=== PATIENT | male | born 1955 | race American Indian/Alaskan Native ===

== ENCOUNTER 2017-01-25 12:30 | Emergency (ER) | payer OTHER ==
--- NOTE | 2017-01-25 12:54 | C.PDOC ---
History Of Present Illness 61-year-old male presents to the ED complaining of swelling below the right ear , onset this morning after he ate some plantains and had a beer. Denies any pain or fever, trauma, or history of similar problem in the past. Time Seen by Provider: 01/25/17 12:38 Chief Complaint (Nursing): Abnormal Skin Integrity History Per: Patient History/Exam Limitations: no limitations Onset/Duration Of Symptoms: Sudden Onset (this morning) Current Symptoms Are (Timing): Still Present Past Medical History Reviewed: Historical Data, Nursing Documentation, Vital Signs Vital Signs: Last Vital Signs Temp 97.4 F L 01/25/17 12:33 Pulse 83 01/25/17 12:33 Resp 18 01/25/17 12:33 BP 160/92 H 01/25/17 12:33 Pulse Ox 100 01/25/17 15:06 - Medical History PMH: HTN, Hypercholesterolemia Surgical History: No Surg Hx Family History: States: No Known Family Hx - Social History Hx Alcohol Use: Yes Hx Substance Use: No - Immunization History Hx Tetanus Toxoid Vaccination: No Hx Influenza Vaccination: No Hx Pneumococcal Vaccination: No Review Of Systems Except As Marked, All Systems Reviewed And Found Negative. Constitutional: Negative for: Fever ENT: Positive for: Other (Swelling below right ear. No pain) Physical Exam - Physical Exam Appears: Well, Non-toxic, No Acute Distress Skin: Normal Color, Warm, Dry, No Rash Head: Atraumatic, Normacephalic, No Tenderness, Swelling (Moderate swelling at right side at level of parotid gland. No erythema, induration, or fluctuance) Eye(s): bilateral: Normal Inspection, PERRL, EOMI Ear(s): Bilateral: Normal Oral Mucosa: Moist Teeth: Normal Dentition, No Other (obvious salivary duct stones) Neck: Normal, Supple Lymphatic: No Adenopathy Cardiovascular: Rhythm Regular, No Murmur Respiratory: Normal Breath Sounds, No Accessory Muscle Use Extremity: Normal ROM, No Pedal Edema, No Deformity Neurological/Psych: Oriented x3, Normal Speech, Normal Cranial Nerves Gait: Steady ED Course And Treatment - Laboratory Results Result Diagrams: 01/25/17 12:55 01/25/17 12:55 O2 Sat by Pulse Oximetry: 100 (RA) Pulse Ox Interpretation: Normal - CT Scan/US CT Neck Soft Tissue Other Rad Studies (CT/US): Read By Radiologist, Radiology Report Reviewed CT/US Interpretation: FINDINGS: NASOPHARYNX: Unremarkable. SUPRAHYOID NECK: At the oropharynx, the right tonsillar pillar appears somewhat prominent though enhancing in a homogeneous fashion. Clinically correlate for potential lesion here. Direct visualization is advised. The left tonsillar pillar is unremarkable in remainder of the oropharynx, general oral cavity, prevertebral and parapharyngeal soft tissues. Of the anterior oral cavity is obscured however by artifact from dental hardware. INFRAHYOID NECK: Unremarkable larynx , hypopharynx, and supraglottic space. Vocal cords intact. MASS: None. GLANDS : There is mild prominence of the right parotid gland when compared to the left however no focal masses appreciated or ductal dilatation. Superficial and deep components appear grossly nonfocal but there is subtle prior parotid fatty reaction which may indicate an element of parotitis. Further clinical correlation is recommended. The left parotid and bilateral submandibular glands unremarkable. Normal size thyroid gland, without nodule. LYMPH NODES: Normal. No lymphadenopathy. CERVICAL SPINE: Multilevel cervical spondylosis appears [id number]. VASCULAR STRUCTURES: Unremarkable. OTHER FINDINGS: Multifocal sinus disease is seen affecting bilateral maxillary sinuses with underlying small cysts or polyps not excluded. IMPRESSION: 1. Mild prominence of the right parotid gland is appreciated with limited periparotid reaction related to the superficial portion which may indicate mild parotitis. No duct dilatation is appreciated or radiodense sialolithiasis . No definitive mass is also is evident. Further clinical correlation is advised. Remaining salivary glands appear unremarkable. 2. Prominence of the right tonsillar pillar is appreciated which may be infectious or inflammatory. Neoplasm is not excluded. Direct visualization is advised. 3. Incidental bilateral maxillary sinus disease which may include underlying small polyps or cysts. Progress Note: Ordered CT Neck Soft Tissue to r/o salivary duct stones. Labs ordered. Disposition Counseled Patient/Family Regarding: Studies Performed, Diagnosis, Need For Followup, Rx Given - Disposition Referrals: Rome Mccormick MD [Staff Provider] - Disposition: HOME/ ROUTINE Disposition Time: 15:35 Condition: STABLE Additional Instructions: IF YOU HAVE PAIN OR SWELLING TOMORROW MORNING, START ANTIBIOTICS FOLLOW UP WITH DR MCCORMICK IN HIS OFFICE IF SYMPTOMS PERSIST RETURN TO ER IF SYMPTOMS WORSEN Prescriptions: Amoxicillin/Clavulanate [Augmentin 875 MG-125 MG] 1 tab PO BID #20 tab Forms: [facility] (Lebanese), General Discharge Instructions Print Language: SYRIAC - POA Present On Arrival: None - Clinical Impression Clinical Impression: Parotitis - Scribe Statement The provider has reviewed the documentation as recorded by the Scribe Barbara Finnegan All medical record entries made by the Carlibe were at my direction and personally dictated by me. I have reviewed the chart and agree that the record accurately reflects my personal performance of the history, physical exam, medical decision making, and the department course for this patient. I have also personally directed, reviewed, and agree with the discharge instructions and disposition.
[2017-01-25] MEDS ORDERED: Iohexol 300 100 ML IJ ONE (12:56)
--- NOTE | 2017-01-25 13:02 | C.PDOC ---
Time Seen by Provider: 01/25/17 12:38 Chief Complaint (Nursing): Abnormal Skin Integrity Past Medical History Vital Signs: Last Vital Signs Temp 97.4 F L 01/25/17 12:33 Pulse 83 01/25/17 12:33 Resp 18 01/25/17 12:33 BP 160/92 H 01/25/17 12:33 Pulse Ox 100 01/25/17 12:33 - Medical History PMH: HTN, Hypercholesterolemia - Social History Hx Alcohol Use: Yes Hx Substance Use: No - Immunization History Hx Tetanus Toxoid Vaccination: No Hx Influenza Vaccination: No Hx Pneumococcal Vaccination: No ED Course And Treatment O2 Sat by Pulse Oximetry: 100 Disposition - Disposition
[2017-01-25 13:11] LABS: ALKALINE PHOSPHATASE 131 U/L (38-126); ALT/SGPT 42 U/L (21-72); AST/SGOT 31 U/L (17-59); BASO % 0.7 % (0.0-2.0); BILIRUBIN,TOTAL 0.6 mg/dL (0.2-1.3); BLOOD UREA NITROGEN 16 mg/dL (9-20); CALCIUM 8.6 mg/dl (8.6-10.4); CARBON DIOXIDE 26 mmol/L (22-30); CHLORIDE 101 mmol/L (98-107); EOS # 0.2 K/uL (0.0-0.7); EOS % 3.9 % (0.0-4.0); GFR AFRICAN-AMERICAN > 60; GLUCOSE,RANDOM 117 mg/dL (75-110); HEMATOCRIT 42.4 % (35.0-51.0); LYMPH # 1.6 K/uL (1.0-4.3); LYMPH % 25.7 % (20.0-40.0); MEAN CELL VOLUME 82.1 fL (80.0-94.0); MEAN CORPUSCULAR HEMOGLOBIN 27.5 pg (27.0-31.0); MEAN CORPUSCULAR HGB CONC 33.5 g/dL (33.0-37.0); MEAN PLATELET VOLUME 7.4 fL (7.2-11.7); MONO # 0.6 K/uL (0.0-0.8); MONO % 9.5 % (0.0-10.0); POTASSIUM 3.1 mmol/L (3.6-5.2); SODIUM 138 mmol/L (132-148); TOTAL PROTEIN 8.6 g/dL (6.3-8.3); WHITE BLOOD COUNT 6.1 K/uL (4.8-10.8)
[2017-01-25] MEDS ORDERED: Potassium Chloride 20 mEq ER Tab PO STA (13:57)
[2017-01-25] MEDS ORDERED: Potassium Chloride 20 mEq ER Tab PO ONE (14:06)
--- NOTE | 2017-01-25 15:03 | CT ---
PROCEDURE: CT NECK WITH CONTRAST HISTORY: right partoid swelling, r/o stone vs abscess COMPARISON: None TECHNIQUE: CT of the neck with intravenous contrast. Coronal and sagittal reformats generated. Intravenous contrast dose: Omnipaque 300, 100 cc. Radiation dose: DLP 708.55 mGy-cm This CT exam was performed using one or more of the following dose reduction techniques: Automated exposure control, adjustment of the mA and/or kV according to patient size, and/or use of iterative reconstruction technique. FINDINGS: NASOPHARYNX: Unremarkable. SUPRAHYOID NECK: At the oropharynx, the right tonsillar pillar appears somewhat prominent though enhancing in a homogeneous fashion. Clinically correlate for potential lesion here. Direct visualization is advised. The left tonsillar pillar is unremarkable in remainder of the oropharynx, general oral cavity, prevertebral and parapharyngeal soft tissues. Of the anterior oral cavity is obscured however by artifact from dental hardware. INFRAHYOID NECK: Unremarkable larynx, hypopharynx, and supraglottic space. Vocal cords intact. MASS: None. GLANDS: There is mild prominence of the right parotid gland when compared to the left however no focal masses appreciated or ductal dilatation. Superficial and deep components appear grossly nonfocal but there is subtle prior parotid fatty reaction which may indicate an element of parotitis. Further clinical correlation is recommended. The left parotid and bilateral submandibular glands unremarkable. Normal size thyroid gland, without nodule. LYMPH NODES: Normal. No lymphadenopathy. CERVICAL SPINE: Multilevel cervical spondylosis appears [id number]. VASCULAR STRUCTURES: Unremarkable. OTHER FINDINGS: Multifocal sinus disease is seen affecting bilateral maxillary sinuses with underlying small cysts or polyps not excluded. IMPRESSION: 1. Mild prominence of the right parotid gland is appreciated with limited periparotid reaction related to the superficial portion which may indicate mild parotitis. No duct dilatation is appreciated or radiodense sialolithiasis . No definitive mass is also is evident. Further clinical correlation is advised. Remaining salivary glands appear unremarkable. 2. Prominence of the right tonsillar pillar is appreciated which may be infectious or inflammatory. Neoplasm is not excluded. Direct visualization is advised. 3. Incidental bilateral maxillary sinus disease which may include underlying small polyps or cysts.
[2017-01-25 16:01] VITALS: BP 121/77; PULSE 65; RESP 17; TEMP 97.3; O2SAT 99
== END 2017-01-25 16:01 | disposition home or self-care (01) ==
LOC: C.ER 12:30
DX: K11.20 Sialoadenitis, unspecified (principal); E87.6 Hypokalemia
CPT/HCPCS: 70492; 80053; 85025; 99285; Q9967